=== PATIENT | female | born 1955 | race Caucasian/White ===

== ENCOUNTER 2018-01-22 18:19 | Emergency (ER) | payer OTHER ==
[~2018-01-22] VITALS: Ht 165.1 cm; Wt 62.9 kg
[2018-01-22 18:25] VITALS: Ht 165.1 cm; Wt 62.9 kg
[2018-01-22] MEDS ORDERED: ACETAMINOPHEN 500 MG TAB PO STA (18:41)
[2018-01-22] MEDS ORDERED: SODIUM CHLORIDE 0.9% 1000ML 1,000 ML IV ONE (18:41)
--- NOTE | 2018-01-22 18:55 | EMERGENCY ROOM VISIT NOTE ---
History Report prepared by Alan: Manav Schaeffer Under the Supervision of: Dr. Shantanu Duran D.O. First contact with patient: 18:30 Chief Complaint: FEVER Stated Complaint: STEM CELL TRANSPLANT RECEIPIANT, FEVER, SOB, COUGH History of Present Illness The patient is a 62 year old female who presents to the Emergency Room with complaints of a worsening cough that began a couple of days ago. Patient is present with her daughter. Daughter states the patient has also had nasal congestion, fever, and dyspnea. She adds the patient had a sore throat but it has resolved. Patient denies taking Motrin/Tylenol but states she took DayQuil 7 hours ago. Past medical history includes a stem cell transplant a year ago due to a history of non-Hodgkin lymphoma. Patient states she is in remission now. Patient states she has "immunities to nothing". She states she takes Acyclovir. She denies a history of alcohol/tobacco use, hypertension, or diabetes. Patient denies nausea, vomiting, urinary symptoms, back pain, and chest pain. Patient states she is from [place], [place]. Source of History: patient, family (Daughter) Onset: Couple of days ago Position: head Timing: worsening Modifying Factors (Relieving): other (DayQuil) Associated Symptoms: + fevers, + SOB, No sorethroat, No chest pain, No nausea, No vomiting, No back pain, No urinary symptoms Note: Positive nasal congestion. Review of Systems See HPI for pertinent positives & negatives. A total of 10 systems reviewed and were otherwise negative. Past Medical & Surgical Medical Problems: (1) Non-Hodgkin lymphoma Surgical Problems: (1) History of stem cell transplant Family History Patient reports no known family medical history. Social History Smoking Status: Former Smoker Current/Historical Medications Scheduled Acyclovir (Acyclovir), 1 TAB PO BID Albuterol Hfa (Ventolin Hfa), 1 PUFF INH Q4 Alprazolam (Xanax), 1 MG PO TID Azithromycin (Zithromax), 500 MG PO DAILY Bupropion (Wellbutrin Sr), 150 MG PO DAILY Escitalopram Oxalate (Lexapro), 20 MG PO DAILY Omeprazole (Prilosec), 40 MG PO DAILY Zolpidem Tartrate (Ambien), 10 MG PO HS Scheduled PRN Dextromethorphan-Phenylephrine (Vicks Dayquil Cold & Flu), 2 CAP PO Q4 PRN for COLD Allergies Coded Allergies: Penicillins (Verified Allergy, Unknown, Childhood allergy, 01/22/18) Physical Exam Vital Signs Date Time Temp Pulse Resp B/P (MAP) Pulse Ox O2 Delivery O2 Flow Rate FiO2 01/22/18 21:36 68 18 103/59 94 01/22/18 19:57 37.9 88 20 104/60 94 Room Air 01/22/18 19:19 Room Air 01/22/18 18:25 38.6 91 18 106/68 95 Room Air Physical Exam GENERAL: Patient is awake, alert, and in no acute distress. Patient is resting comfortably and showing no signs of anxiety EYES: The conjunctivae are clear. The pupils are round and reactive. EARS, NOSE, MOUTH AND THROAT: Clear rhinorrhea noted bilaterally. The nose is without any evidence of any deformity. Mucous membranes are moist. Tongue is midline. NECK: The neck is nontender and supple. RESPIRATORY: Diminished lung sounds throughout with scattered rhonchi. No tachypnea or conversational dyspnea appreciated on exam otherwise normal respiratory effort is noted. There is no evidence of wheezing or rales to auscultation. CARDIOVASCULAR: Regular rate and rhythm noted. There no murmurs rubs or gallops normal S1 normal S2 GASTROINTESTINAL: The abdomen is soft. Bowel sounds are present in all quadrants. Abdomen is nontender. MUSCULOSKELETAL/EXTREMITIES: There is no evidence of gross deformity. Full range of motion is noted in the hips and shoulders. SKIN: There is no obvious evidence of any rash. There are no petechiae, pallor or cyanosis noted. NEUROLOGIC: Patient is awake alert and oriented x3. Strength is symmetric. Patellar reflexes are 2+ bilaterally. Medical Decision & Procedures ER Provider Diagnostic Interpretation: Radiology results as stated below per my review and radiologist interpretation: SINGLE VIEW CHEST CLINICAL HISTORY: Sepsis. FINDINGS: An AP, portable, upright chest radiograph is obtained. No prior studies are available for comparison at the time of dictation. The examination is degraded by portable technique and patient rotation. The cardiomediastinal silhouette is unremarkable. There is mild elevation of the left hemidiaphragm with associated atelectasis. The lungs and pleural spaces are otherwise clear. No pneumothorax is seen. The skeletal structures are osteopenic. The bony thorax is grossly intact. IMPRESSION: No active disease in the chest. Electronically signed by: Adrian Finley M.D. 01/22/2018 7:09 PM Laboratory Results 01/22/18 19:00 Red Blood Count 3.60, Mean Corpuscular Volume 97.2, Mean Corpuscular Hemoglobin 32.8, Mean Corpuscular Hemoglobin Concent 33.7, Mean Platelet Volume 9.1, Neutrophils (%) (Auto) 73.0, Lymphocytes (%) (Auto) 17.3, Monocytes (%) (Auto) 9.0, Eosinophils (%) (Auto) 0.5, Basophils (%) (Auto) 0.2, Neutrophils # (Auto) 3.07, Lymphocytes # (Auto) 0.73, Monocytes # (Auto) 0.38, Eosinophils # (Auto) 0.02, Basophils # (Auto) 0.01 01/22/18 19:00 Test 01/22/18 19:00 01/22/18 19:07 01/22/18 19:15 White Blood Count 4.21 K/uL (4.8-10.8) Red Blood Count 3.60 M/uL (4.2-5.4) Hemoglobin 11.8 g/dL (12.0-16.0) Hematocrit 35.0 % (37-47) Mean Corpuscular Volume 97.2 fL (80-100) Mean Corpuscular Hemoglobin 32.8 pg (25-34) Mean Corpuscular Hemoglobin Concent 33.7 g/dl (32-36) Platelet Count 83 K/uL (130-400) Mean Platelet Volume 9.1 fL (7.4-10.4) Neutrophils (%) (Auto) 73.0 % Lymphocytes (%) (Auto) 17.3 % Monocytes (%) (Auto) 9.0 % Eosinophils (%) (Auto) 0.5 % Basophils (%) (Auto) 0.2 % Neutrophils # (Auto) 3.07 K/uL (1.4-6.5) Lymphocytes # (Auto) 0.73 K/uL (1.2-3.4) Monocytes # (Auto) 0.38 K/uL (0.11-0.59) Eosinophils # (Auto) 0.02 K/uL (0-0.5) Basophils # (Auto) 0.01 K/uL (0-0.2) RDW Standard Deviation 52.0 fL (36.4-46.3) RDW Coefficient of Variation 14.4 % (11.5-14.5) Immature Granulocyte % (Auto) 0.0 % Immature Granulocyte # (Auto) 0.00 K/uL (0.00-0.02) Platelet Estimate DECREASED Erythrocyte Sedimentation Rate 2 mm/hr (0-21) Prothrombin Time 10.6 SECONDS (9.0-12.0) Prothromb Time International Ratio 1.0 (0.9-1.1) Activated Partial Thromboplast Time 27.3 SECONDS (21.0-31.0) Partial Thromboplastin Ratio 1.1 Anion Gap 7.0 mmol/L (3-11) Est Creatinine Clear Calc Drug Dose 58.4 ml/min Estimated GFR () 78.9 Estimated GFR (Non- 68.1 BUN/Creatinine Ratio 17.7 (10-20) Calcium Level 8.9 mg/dl (8.5-10.1) Magnesium Level 1.5 mg/dl (1.8-2.4) Total Bilirubin 0.9 mg/dl (0.2-1) Aspartate Amino Transf (AST/SGOT) 20 U/L (15-37) Alanine Aminotransferase (ALT/SGPT) 27 U/L (12-78) Alkaline Phosphatase 74 U/L (45-117) C-Reactive Protein 2.15 mg/dl (0-0.29) Total Protein 6.3 gm/dl (6.4-8.2) Albumin 3.8 gm/dl (3.4-5.0) Globulin 2.5 gm/dl (2.5-4.0) Albumin/Globulin Ratio 1.5 (0.9-2) Bedside Lactic Acid Venous 0.82 mmol/L (0.90-1.70) Urine Color YELLOW Urine Appearance CLEAR (CLEAR) Urine pH 5.0 (4.5-7.5) Urine Specific [place] 1.016 (1.000-1.030) Urine Protein NEG (NEG) Urine Glucose (UA) NEG (NEG) Urine Ketones NEG (NEG) Urine Occult Blood NEG (NEG) Urine Nitrite NEG (NEG) Urine Bilirubin NEG (NEG) Urine Urobilinogen NEG (NEG) Urine Leukocyte Esterase NEG (NEG) Urine WBC (Auto) 0 /hpf (0-5) Urine RBC (Auto) 0-4 /hpf (0-4) Urine Hyaline Casts (Auto) 0 /lpf (0-5) Urine Epithelial Cells (Auto) 5-10 /lpf (0-5) Urine Bacteria (Auto) NEG (NEG) Laboratory results per my review. Medications Administered Medications (Trade) Dose Ordered Sig/Preeti Route Start Time Stop Time Status Last Admin Dose Admin Sodium Chloride 1,000 ml @ 999 mls/hr Q1H1M ONCE IV 01/22/18 18:41 01/22/18 19:41 DC 01/22/18 19:01 999 MLS/HR Acetaminophen (Tylenol Tab) 1,000 mg NOW STAT PO 01/22/18 18:41 01/22/18 18:43 DC 01/22/18 19:01 1,000 MG Azithromycin (Zithromax Tab) 500 mg NOW STAT PO 01/22/18 20:51 01/22/18 20:52 DC 01/22/18 21:10 500 MG ED Course 1832: The patient was evaluated in room B6. A complete history and physical examination were performed. 1840: Tylenol Tab 1000mg and NSS 1,000 ml @ 999 mls/hr IV 2044: I reevaluated the patient and updated her on her findings. 2050: Zithromax Tab 500mg PO 2103: Upon reevaluation, the patient is resting comfortably. I was able to view the patient's old lab results which showed no change in her CBC. I discussed the results and treatment plan with her. She verbalized agreement of the treatment plan. She was discharged home. Medical Decision Prior records/ancillary studies reviewed. Triage Nursing notes reviewed. The patient's history was concerning for fever. Differential diagnosis: Etiologies such as viral syndrome, otitis, pharyngitis, pneumonia, influenza, meningitis, urinary tract infection, sepsis, bacteremia, as well as others were entertained. The patient is a 62-year-old female who presented to emergency department for fever. The patient had upper respiratory symptoms including rhinorrhea and facial pain. The patient is also been expressing a cough. She has a history of stem cell replacement in the past. She was treated at [facility]. She came in the emergency department today because she was concerned of serious infection. She has been treating herself with [id number] medications. The patient was treated with IV fluids as well as antibiotics in the emergency department. I discussed the patient's laboratory and radiographic studies with her. Her CBC does not appear to be significantly changed from one that she was able to find from last spring on her phone. The patient was encouraged to continue all medications as prescribed and continue using Tylenol for fever. I also recommended that she follow-up with the primary care physician but since she is not from the area I encouraged her to return to the emergency department immediately if symptoms change worsen or the need arises. Medication Reconcilliation Current Medication List: was personally reviewed by me Blood Pressure Screening Patient's blood pressure: Normal blood pressure Blood pressure disposition: Did not require urgent referral Impression Primary Impression: Fever Additional Impression: Sinusitis Scribe Attestation The scribe's documentation has been prepared under my direction and personally reviewed by me in its entirety. I confirm that the note above accurately reflects all work, treatment, procedures, and medical decision making performed by me. Departure Information Dispostion Home / Self-Care Prescriptions Azithromycin (Zithromax) 500 Mg Tab 500 MG PO DAILY, #4 TAB Prov: Shantanu Duran, 01/22/18 Albuterol Hfa (VENTOLIN HFA) 200 Puffs/55254 Mcg Aers 1 PUFF INH Q4, #1 INHALER Prov: Shantanu Duran, DO 01/22/18 Referrals No Doctor, Assigned (PCP) Forms HOME CARE DOCUMENTATION FORM, IMPORTANT VISIT INFORMATION Patient Instructions ED Fever Control, My [facility], Sinusitis Acute Additional Instructions Continue all medications as prescribed. Drink plenty of clear liquids. Continue using Tylenol as directed for body aches and fever. Follow-up with your doctor soon as possible but return to the emergency department immediately if symptoms change worsen or the need arises. Consider using an over-the- counter nasal spray such as Flonase as directed. Problem Qualifiers Primary Impression: Fever Fever type: unspecified Qualified Codes: R50.9 - Fever, unspecified Additional Impression: Sinusitis Sinusitis location: unspecified location Chronicity: acute Recurrence: not specified as recurrent Qualified Codes: J01.90 - Acute sinusitis, unspecified
--- NOTE | 2018-01-22 19:11 | DIAGNOSTIC IMAGING REPORT ---
SINGLE VIEW CHEST CLINICAL HISTORY: Sepsis. FINDINGS: An AP, portable, upright chest radiograph is obtained. No prior studies are available for comparison at the time of dictation. The examination is degraded by portable technique and patient rotation. The cardiomediastinal silhouette is unremarkable. There is mild elevation of the left hemidiaphragm with associated atelectasis. The lungs and pleural spaces are otherwise clear. No pneumothorax is seen. The skeletal structures are osteopenic. The bony thorax is grossly intact. IMPRESSION: No active disease in the chest. Electronically signed by: Adrian Finley M.D. 01/22/2018 7:09 PM Dictated Date/Time: 01/22/2018 7:09 PM
[2018-01-22] MEDS ORDERED: OMEP40CA41 PO (19:14)
[2018-01-22] MEDS ORDERED: BUPR-79 PO (19:14)
[2018-01-22] MEDS ORDERED: ZOLP10TA PO (19:14)
[2018-01-22] MEDS ORDERED: ESCI1TAB10 PO (19:14)
[2018-01-22] MEDS ORDERED: ACYC400T PO (19:14)
[2018-01-22] MEDS ORDERED: DEXT1CAP9 PO (19:14)
[2018-01-22] MEDS ORDERED: ALPR1TAB3 PO (19:14)
[2018-01-22 19:21] LABS: HEMOGLOBIN 11.8 g/dL (12.0-16.0); MEAN CELL VOLUME 97.2 fL (80-100); MEAN CORPUSCULAR HEMOGLOBIN 32.8 pg (25-34); MEAN CORPUSCULAR HGB CONC 33.7 g/dl (32-36); RED CELL DISTRIBUTION WIDTH CV 14.4 % (11.5-14.5); WHITE BLOOD COUNT 4.21 K/uL (4.8-10.8)
[2018-01-22 19:25] LABS: PTT PATIENT 27.3 SECONDS (21.0-31.0)
[2018-01-22 19:40] LABS: BASO % 0.2 %; BASO ABS # 0.01 K/uL (0-0.2); EOS % 0.5 %; EOS ABS # 0.02 K/uL (0-0.5); LYMPH % 17.3 %; LYMPH ABS # 0.73 K/uL (1.2-3.4); MEAN PLATELET VOLUME 9.1 fL (7.4-10.4); MONO ABS # 0.38 K/uL (0.11-0.59); NEUT ABS # 3.07 K/uL (1.4-6.5); PLATELET COUNT 83 K/uL (130-400)
[2018-01-22 19:48] LABS: ALBUMIN 3.8 gm/dl (3.4-5.0); CALCIUM 8.9 mg/dl (8.5-10.1); CREATININE 0.91 mg/dl (0.60-1.20); POTASSIUM 3.7 mmol/L (3.5-5.1); TOTAL PROTEIN 6.3 gm/dl (6.4-8.2)
[2018-01-22 19:57] VITALS: TEMP 37.9
[2018-01-22] MEDS ORDERED: AZITHROMYCIN 250 MG TAB PO STA (20:51)
[2018-01-22] MEDS ORDERED: AZIT500T26 PO (20:55)
[2018-01-22] MEDS ORDERED: VNTHFA/IN INH (20:55)
[2018-01-22 21:36] VITALS: BP 103/59; PULSE 68; O2SAT 94
== END 2018-01-22 21:37 | disposition home or self-care (01) ==
LOC: C.EDB 18:22
DX: R50.9 Fever, unspecified (principal); J01.90 Acute sinusitis, unspecified; Z85.72 Personal history of non-Hodgkin lymphomas; Z94.84 Stem cells transplant status; Z79.899 Other long term (current) drug therapy; Z87.891 Personal history of nicotine dependence; Z79.51 Long term (current) use of inhaled steroids; Z88.0 Allergy status to penicillin